=== PATIENT | male | born 1945 | race Caucasian/White ===

== ENCOUNTER 2022-09-08 21:15 | Emergency (ER) | payer MEDICARE, BC ==
[~2022-09-08] VITALS: Ht 190.5 cm; Wt 72.6 kg
[2022-09-08] MEDS ORDERED: LIDOcaine 1% W/epiNEPHrine 1:100,000 20ml vial IJ ONE (22:15)
[2022-09-08] MEDS ORDERED: bacitracin 15gm ointment TP ONE (22:15)
--- NOTE | 2022-09-08 22:41 | NUR ---
CIN[employer]IA [employer] AT [employer]EDS[employer] PERFORMING PROCEDURE
[2022-09-08 22:52] VITALS: BP 107/78; PULSE 63; RESP 18; O2SAT 96
== END 2022-09-08 22:55 | disposition home or self-care (01) ==
LOC: ER 21:17
DX: S81.812A Laceration without foreign body, left lower leg, initial encounter (principal); W22.8XXA Striking against or struck by other objects, initial encounter; Y93.89 Activity, other specified; Y92.89 Other specified places as the place of occurrence of the external cause; Y99.8 Other external cause status
CPT/HCPCS: 12001; 12002; 99284; A6449